=== PATIENT | male | born 1950 | race Caucasian/White ===

== ENCOUNTER 2017-12-17 05:01 | Emergency (ER) | payer OTHER ==
[2017-12-17 05:03] VITALS: BP 138/80; TEMP 98; BMI 28.5
[2017-12-17] MEDS ORDERED: DECADRON 4 MG/ML SDV IM STA (05:10)
[2017-12-17] MEDS ORDERED: DECADRON 4 MG/ML SDV ONE (05:12)
--- NOTE | 2017-12-17 05:14 | ED.PDOC ---
General ED Provider: Dr. OLGA TIDWELL-ER Chief Complaint: Rash Stated Complaint: aftab got poison jayashree Time Seen by Physician: 05:05 Mode of Arrival: Walk-In Information Source: Patient Exam Limitations: No limitations Primary Care Provider: CAT MALDONADO Nursing and Triage Documentation Reviewed and Agree: Yes Reviewed sepsis parameters & appropriate labs ordered?: Yes System Inflammatory Response Syndrome: Not Applicable Sepsis Protocol: For patient's 13 years and over: Temp is 96.8 and below OR 101 and greater Pulse >90 BPM Resp >20/minute Acutely Altered Mental Status Are patient's symptoms suggestive of a new infection, such as: -Pneumonia -Skin, Soft Tissue -Endocarditis -UTI -Bone, Joint Infection -Implantable Device -Acute Abdominal Infection -Wound Infection -Meningitis -Blood Stream Catheter Infection -Unknown Skin Complaint Exam - Skin Rash/Itching Complaint/Exam Onset/Duration: 24 hrs Symptoms Are: Still present Initial Severity: Mild Current Severity: Moderate Location: hands, face and arm Potential Exposures: Reports: Plants Aggravating: Reports: None Alleviating: Reports: None Associated Signs and Symptoms: Denies: Difficulty breathing, Fever, Chills Skin Findings: Present: Maculae Differential Diagnoses: Poison Jayashree/[place] Review of Systems - Review Of Systems Constitutional: Reports: No symptoms Eyes: Reports: No symptoms Ears, Nose, Mouth, Throat: Reports: No symptoms Respiratory: Reports: No symptoms Cardiac: Reports: No symptoms GI: Reports: No symptoms : Reports: No symptoms Musculoskeletal: Reports: No symptoms Skin: Reports: Rash Neurological: Reports: No symptoms Endocrine: Reports: No symptoms Hematologic/Lymphatic: Reports: No symptoms All Other Systems: Reviewed and Negative Past Medical History - Past Medical History Previously Healthy: Yes Endocrine: Reports: None Cardiovascular: Reports: None Respiratory: Reports: None Hematological: Reports: None Gastrointestinal: Reports: None Genitourinary: Reports: None Neuro/Psych: Reports: None Musculoskeletal: Reports: None Cancer: Reports: None Other Pertinent Past Medical History: 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, - Surgical History General Surgical History: Reports: Other (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 , ) - Family History Family History: Reports: Unknown - Social History Smoking Status: Never smoker Hx Substance Use: No Alcohol Screening: None - Immunizations Tetanus Shot up to Date: Yes Physical Exam - Physical Exam Appearance: Well-appearing Eyes: SUSAN, EOMI, Conjunctiva clear ENT: Ears normal, Nose normal, Oropharynx normal Neck: Supple Respiratory: Airway patent, Breath sounds clear, Breath sounds equal, Respirations nonlabored Cardiovascular: RRR GI/: Soft Musculoskeletal: Normal strength, ROM intact, No edema, No calf tenderness Skin: Warm, Dry (noted rash) Neurological: Sensation intact, Motor intact, Reflexes intact, Cranial nerves intact, Alert, Oriented Psychiatric: Affect appropriate, Mood appropriate Critical Care Note - Critical Care Note Total Time (mins): 0 Course - Course Orders, Labs, Meds: Orders Category Date Time Status Dexamethasone 4 mg/ml Inj [Decadron 4 mg/ml Sdv] MEDS 12/17/17 05:10 Stat 8 mg IM ONCE STA Medications Generic Name Dose Route Start Last Admin Trade Name Freq PRN Reason Stop Dose Admin Dexamethasone Sodium Phosphate 8 mg 12/17/17 05:10 Decadron 4 Mg/Ml Sdv IM 12/17/17 05:11 ONCE STA Vital Signs: Temp Pulse Resp BP Pulse Ox 12/17/17 05:01 98 F 80 16 138/80 97 Departure - Departure Time of Disposition: 05:13 Disposition: HOME SELF-CARE Discharge Problem: Pruritic rash Instructions: Poison Jayashree (ED) Condition: Good Pt referred to PMD for follow-up: Yes IPMP verified?: No Additional Instructions: prednisone 30mg x 2 days then 20mg x 3 days then 10mg x 3 days--lidex cream apply tid and cover with sarna lotion-- Allergies/Adverse Reactions: Allergies No Known Allergies Allergy (Verified 12/17/17 05:07) Home Medications: Ambulatory Orders Travoprost Opth [Travatan Z] 1 drop EACHEYE DAILY 12/26/13 Tobramycin [Tobrex] 2 drop OP QID #1 bottle 01/02/16 Ascorbic Acid [Vitamin C] 1,000 mg PO DAILY 12/17/17 Cholecalciferol (Vitamin D3) [Vitamin D-400] 400 unit PO DAILY 12/17/17 Losartan/Hydrochlorothiazide [Losartan-Hctz 50-12.5 mg Tab] 1 each PO DAILY Disposition Discussed With: Patient
== END 2017-12-17 05:18 | disposition home or self-care (01) ==
LOC: ED 05:01
DX: L23.7 Allergic contact dermatitis due to plants, except food (principal)
CPT/HCPCS: 96372; 99282

== ENCOUNTER 2019-02-01 10:00 | Day surgery (SDC) | payer OTHER ==
[2019-02-01] MEDS ORDERED: LIDOCAINE 1% 20 ML MDV ID STA (10:22)
[2019-02-01 10:27] VITALS: TEMP 97.8
[2019-02-01] MEDS ORDERED: DIPRIVAN 20 ML VIAL IVP ONE (11:50)
[2019-02-01] MEDS ORDERED: VERSED ONE (11:50)
[2019-02-01 12:42] VITALS: BP 124/78
--- NOTE | 2019-02-02 10:52 | OP ---
INDICATIONS FOR PROCEDURE: 68-year-old gentleman presents for screening colonoscopy exam. He has a family history of colon cancer involving his brother. MEDICATIONS: SEE ANESTHESIA NOTES. PROCEDURE: COLONOSCOPY. REPORT: The risks, benefits, alternatives and limitations were discussed in detail with the patient. Informed consent was obtained. After adequate sedation was achieved, a digital rectal exam revealed good tone, no masses. The colonoscope was introduced into the rectum and advanced under direct visual guidance to the cecum. The cecum was identified by the appendiceal orifice and IC valve. I then slowly withdrew the scope in a circumferential manner examining the mucosa quite carefully. I looked on the proximal and distal side of folds and flexures as best as possible. I was able to retroflex the scope in the right colon and left colon to increase visualization. The colonic mucosa was unremarkable its entire length except for a few small scattered diverticula throughout the sigmoid. On retroflex view of the anal canal there are small internal hemorrhoids. The prep was good. The withdrawal time was 7 minutes and 23 seconds. The patient tolerated the procedure well with stable vital signs and pulse oximetry throughout. IMPRESSION: 1. Scattered sigmoid diverticulosis. 2. Small internal hemorrhoids. RECOMMENDATIONS: 1. HIgh fiber diet. 2. Office visit as needed. 3. Colon screening examination again in 5 years, sooner if there are any signs or symptoms to indicate otherwise. CC: DR. ERICA TELLO
== END 2019-02-01 13:05 | disposition home or self-care (01) ==
LOC: SURG 10:00
PROVIDERS: ATTEND Internal Medicine Gastroenterology
DX: Z86.010 Personal history of colon polyps (principal); Z80.0 Family history of malignant neoplasm of digestive organs; K57.90 Diverticulosis of intestine, part unspecified, without perforation or abscess without bleeding; K64.8 Other hemorrhoids
CPT/HCPCS: 00812; G0105